=== PATIENT | male | born 1985 | race Caucasian/White ===

== ENCOUNTER 2018-02-09 17:10 | Emergency (ER) | payer OTHER ==
[~2018-02-09] VITALS: Ht 185.4 cm; Wt 120.2 kg
[2018-02-09] MEDS ORDERED: ALLEGRA ALLERGY60 MG PO (17:20)
[2018-02-09] MEDS ORDERED: VENTOLIN HFA 1818 GM INH (17:21)
[2018-02-09] MEDS ORDERED: SINGULAIR 10 MG10 M1 PO (17:22)
[2018-02-09] MEDS ORDERED: MEDROLDOSEPACK PO (17:36)
[2018-02-09] MEDS ORDERED: AMOXICILLIN875 MG PO (17:36)
[2018-02-09 18:21] VITALS: BP 149/85
== END 2018-02-09 18:21 | disposition home or self-care (01) ==
LOC: M.ERS 17:10
DX: R42 Dizziness and giddiness (principal); J45.909 Unspecified asthma, uncomplicated